=== PATIENT | female | born 1960 | race Caucasian/White ===

== ENCOUNTER → 2021-01-15 11:08 | Outpatient (CLI) | payer OTHER, MEDICAID, SELFPAY ==
--- NOTE | 2021-01-15 11:17 | DI.RAD.S_ITS ---
PROCEDURE: XR CHEST 2V INDICATIONS: RT RIB/CHEST PAIN TECHNIQUE: 2 views of the chest were acquired. COMPARISON: None. FINDINGS: Surgical changes and devices: None. Lungs and pleura: Lungs are clear. No pleural effusions or pneumothorax. Mediastinum: Mediastinal contours are normal. Heart size is normal. Bones and chest wall: No suspicious bony abnormalities. Soft tissues appear unremarkable. IMPRESSION: No acute cardiopulmonary disease process. No displaced rib fracture identified. Dictated by: Lindsey Medina MD, PhD on 01/15/2021 at 12:03 Approved by: Lindsey Medina MD, PhD on 01/15/2021 at 12:04
== END ==
PROVIDERS: Family Provider Family Medicine; PCP Physician Assistant; Referring Provider Physician Assistant; Visit Provider Physician Assistant
DX: R07.82 Intercostal pain (principal)
CPT/HCPCS: 71046

== ENCOUNTER → 2021-06-28 09:17 | Outpatient (CLI) | payer OTHER, MEDICAID, SELFPAY ==
[2021-07-01 18:14] LABS: H. Pylori Antigen Stool Negative (Negative)
== END ==
PROVIDERS: Family Provider Family Medicine; PCP Physician Assistant; Referring Provider Physician Assistant; Visit Provider Physician Assistant
DX: R10.84 Generalized abdominal pain (principal)
CPT/HCPCS: 87045; 87177; 87338

== ENCOUNTER → 2021-10-16 08:17 | Outpatient (CLI) | payer OTHER, MEDICAID, SELFPAY ==
--- NOTE | 2021-10-16 | DI.RAD.S_ITS ---
PROCEDURE: FL BARIUM SWALLOW W SPEECH INDICATIONS: Dysphagia, unspecified COMPARISON: None. TECHNIQUE: Examination was conducted in conjunction with speech pathology per standard protocol. In the lateral projection, filming was performed of the patient swallowing. AP projection filming may also be performed with patient swallowing. COMPARISON: FINDINGS: Function: The oral preparatory phase appears normal, with proper containment. The subsequent oral propulsive phase, pharyngeal phase, and esophageal phase of swallowing also appear normal with all proffered substances. No laryngotracheal penetration or aspiration. No pathologic vallecular pooling. Morphology: No cricopharyngeal bar is identified. No cervical esophageal webs. No Zenker's diverticulum. No strictures. IMPRESSION: Normal examination. Consider dedicated esophagram or upper GI series for additional evaluation of patient's symptoms if clinically indicated. Please see speech pathology report for additional study details. Dictated by: Lindsey Medina MD, PhD on 10/16/2021 at 13:18 Approved by: Lindsey Medina MD, PhD on 10/16/2021 at 13:19
--- NOTE | 2021-10-16 16:55 | ST.SWALLOW ---
Visit Care Team Role Provider Type Zuleima Glez MD Family Provider Non-Staff Specialty: Family Practice Address: [address] [place] [address], [id number] Email: Mary William PA-C Attending Provider Non-Staff Primary Care Provider Referring Provider Specialty: Medical Address: [address] [place] [address], [id number] Email: Modified Barium Swallow Study MEDICAL SCREENER Modified Barium Swallow Study Start: 10/16/21 13:48 Freq: Status: Active Protocol: Document 10/16/21 13:56 LNK (Rec: 10/16/21 14:18 LNK [id number]) Modified Barium Swallow Study Total Time Visit Start Time 08:30 Visit Stop Time 09:10 Total Visit Minutes 40 Setting Setting Outpatient Care Patient Information Identification Type Name,Date of Patient History Pt was seen for a Modified Barium Swallow Study at her PA Mary's referral. According to the pt, she requested an assessment to determine esophageal function. Pt described a sense of globus in her throat near the sternum. She also has a sense of reflux, painful esophagus and stomach. 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 In February 2021, the pt underwent a scoping of her esophagus at [facility]. According to the pt, the results indicated structures to be WNL. The pt had polyps in her esophagus that are indicative of intermediate PPI use, removed. At that time she was taken off PPIs. Subjective Observations Pt presented as anxious and confused re: MBSS . Unable to locate [facility] assessment. As she described globus near the sternum and reflux sensation, it was decided to proceed with the MBSS. Pt was seated in the fluoroscopy chair with directions and procedures described. Pt indicated she understood and agreed to proceed. Patient Positioning Position View Lat-A/P Imaging Lateral View Textures Administered Trials Presented Thin Liquid via Spoon,Thin Liquid via Cup,Pudding Thick Liquid via Spoon,Regular Textures Oral Phase Source: MBSIMP (TM) (C) Bolus Specific Scoring Grid Lip Closure No Impairment (WNL) Tongue Control During Bolus Hold No Impairment (WNL) Bolus Prep/Mastication No Impairment (WNL) Bolus Transport/Lingual Motion No Impairment (WNL) A/P Lingual Propulsion Delay No Oral Residue No Impairment (WNL) Residue Clearing No Impairment (WNL) Nasal Regurgitation No Additional Oral Phase Observations Informal OME indicated structures WNL for mastication. Dentition natural. Pharyngeal Phase Source: MBSIMP (TM) (C) Bolus Specific Scoring Grid Delayed Initiation of Pharyngeal Swallow No Soft Palate Elevation No Impairment (WNL) Tongue Base Strength/Range of Motion No Impairment (WNL) Residue Along the Tongue Base No Laryngeal Elevation No Impairment (WNL) Anterior Hyoid Movement No Impairment (WNL) Epiglottic Range of Motion No Impairment (WNL) Vallecular Residue Yes: Minimal residue right side Clearance of Vallecular Residue No Impairment (WNL) Laryngeal Vestibular Closure No Impairment (WNL) Pharyngeal Stripping Wave No Impairment (WNL) Pharyngeal Contraction No Impairment (WNL) Posterior Pharyngeal Wall Residue No Upper Esophageal Sphincter Opening No Impairment (WNL) Residue in the Pyriform Sinuses No Esophageal Clearance Upright Position No Impairment (WNL) Additional Pharyngeal Phase Observations Pharyngeal phase of swallow WNL. Osteophytes at C4-C6 alter the shape of the esophagus, but do not impeded flow to the stomach. During assessment, pt reported that she was experiencing increased sense of globus. A/P View Textures Administered Trials Presented Thin Liquid via Spoon A/P View Observations Pharyngeal Contraction WFL Vocal Fold Function Good Residue Observed Valleculae Right Esophageal Function No Impairment (WNL) Esophageal Clearance Upright Position No Impairment (WNL) Esophageal Observations Esophageal Function Screened. Esophagus observed to completely empty into stomach Clinical Impressions Dysphagia Type Normal oral and pharyngeal swallow function. No dysphagia observed Findings Referral is recommended to GI for further assessment of the pt's esophagus. She describes pain in her esophagus and stomach. Currently she is not taking PPI medication. She additionally describes a sense of globus. It is suspected that that pt's unmedicated PPI is related to her symptoms. Pt does not present with oropharyngeal dysphagia. ST is not indicated Patient Appropriate for Therapy No Recommendations Diet Comments No change in diet Treatment Plan Recommended Referrals GI Consult Additional Recommended Referrals Refer to GI for further assessment
== END ==
PROVIDERS: Family Provider Family Medicine; PCP Physician Assistant; Referring Provider Physician Assistant; Visit Provider Physician Assistant
DX: R13.10 Dysphagia, unspecified (principal)
CPT/HCPCS: 74230; 92611